=== PATIENT | male | born 1945 | race Hispanic/Latino ===

== ENCOUNTER → 2020-07-08 | Day surgery (SDC) | payer SELFPAY ==
[~2020-07-08] MED LIST: Acetaminophen 500 MG TAB ONE; BAMLANIVIMAB 700 MG in Sodium Chloride 0.9% 250 ML 250 ML IVPB SCH; diphenhydrAMINE 50 MG/ML VIAL ONE
== END ==
LOC: CSHER/OP 13:26
PROVIDERS: ATTEND Specialist
DX: U07.1 COVID-19 (principal)
CPT/HCPCS: J1200